=== PATIENT | male | born 2000 | race Native Hawaiian/Other Pacific Islander ===

== ENCOUNTER 2019-02-22 08:36 | Outpatient (CLI) | payer OTHER | END 2019-02-22 21:17 | disposition home or self-care (01) | LOC: LABW 08:36 | DX: R10.84 Generalized abdominal pain (principal) | CPT/HCPCS: 36415; 86318 ==

== ENCOUNTER 2019-10-19 06:32 | Outpatient (CLI) | payer OTHER ==
[2019-10-19 07:21] LABS: POTASSIUM 3.8 mmol/L (3.6-5.2)
== END 2019-10-19 19:22 | disposition home or self-care (01) ==
LOC: LABW 06:32
PROVIDERS: Pediatrics
DX: E66.9 Obesity, unspecified (principal)
CPT/HCPCS: 80053; 80061; 83036; 84443